=== PATIENT | male | born 1980 | race Two or more races ===

== ENCOUNTER 2020-10-06 08:59 | Outpatient (CLI) | payer OTHER | END 2020-10-06 09:09 | disposition home or self-care (01) | LOC: RX STUDY 08:59 | PROVIDERS: ATTEND Otolaryngology Pediatric Otolaryngology | DX: R13.19 Other dysphagia (principal) ==

== ENCOUNTER 2023-01-25 22:27 | Emergency (ER) | payer OTHER ==
[~2023-01-25] VITALS: Ht 182.9 cm; Wt 77.1 kg
[2023-01-25] MEDS ORDERED: CIPRO500 MG PO (22:44)
== END 2023-01-25 22:51 | disposition home or self-care (01) ==
LOC: ER 22:27
DX: S61.451A Open bite of right hand, initial encounter (principal); W55.01XA Bitten by cat, initial encounter; Y93.89 Activity, other specified; Y92.89 Other specified places as the place of occurrence of the external cause